=== PATIENT | male | born 1970 | race Caucasian/White ===

== ENCOUNTER 2017-12-25 11:14 | Emergency (ER) | payer OTHER ==
[2017-12-25 11:32] VITALS: TEMP 98.4; O2SAT 96
--- NOTE | 2017-12-25 12:05 | ED.PDOC ---
History of Present Illness - General Chief Complaint: Skin/Abrasion/Tear Stated Complaint: possible gastrostomy infection Time Seen by Provider: 12/25/17 11:49 Source: patient Exam Limitations: no limitations - History of Present Illness Initial Comments: 12 D AGO, HAD LAP JOSE LUIS IN [place]. G-TUBE INSERTED 12 D AGO IN CONJUNCTION FOR H/O GASTRIC BYPASS SURGERY. FOR SEVERAL DAYS, PT STATES SKIN SURFACE HAS STARTED FEELING IRRITATED. NOTICING YELLOW-BROWN DRAINAGE AROUND G-TUBE INSERTION SITE. DENIES ANY OTHER PAIN OR SX. NO INTERNAL ABDOMINAL PAIN. ALLG: PCN, FLAGYL Severity: moderate Improving Factors: nothing Worsening Factors: nothing Associated Symptoms: denies symptoms Allergies/Adverse Reactions: Allergies Penicillins Allergy (Verified 12/25/17 11:23) Home Medications: Ambulatory Orders Doxycycline (Monohydrate) [Doxycycline Monohydrate] 100 mg PO BID #20 cap Review of Systems - Review of Systems Constitutional: Denies: chills, diaphoresis, fever EENTM: States: no symptoms reported Respiratory: States: no symptoms reported Cardiology: States: no symptoms reported Gastrointestinal/Abdominal: Denies: abdominal pain, constipation, diarrhea, nausea, vomiting Genitourinary: States: no symptoms reported Musculoskeletal: States: no symptoms reported Skin: States: rash Neurological: States: no symptoms reported Endocrine: States: no symptoms reported Hematologic/Lymphatic: States: no symptoms reported All other Systems: Reviewed and Negative Past Medical History (General) - Patient Medical History Hx Stroke: No Hx Cardiac Disorders: No Hx Diabetes: No Surgical History: cholecystectomy, other Family Medical History - Family History Mother Family History: Unknown Physical Exam - Physical Exam General Appearance: Alert, Comfortable Eye Exam: bilateral normal Ears, Nose, Throat: hearing grossly normal, normal ENT inspection Neck: full range of motion, normal inspection Respiratory: lungs clear, normal breath sounds Cardiovascular/Chest: normal peripheral pulses, regular rate, rhythm Gastrointestinal/Abdominal: normal bowel sounds, non tender, soft, no organomegaly, no pulsatile mass Extremity: normal range of motion, normal inspection Neurologic: alert, normal mood/affect Skin Exam: other - G-TUBE: IN TACT. FAINT SURROUNDING ERYTHEMA APPROXIMATELY 4 CM DIAMETER. SCANT YELLOW-BROWN EXUDATE. MILD INDURATION AND G-TUBE TTP. Lymphatic: no adenopathy Progress - Results/Orders Results/Orders: PT IS ALLERGIC TO PCN AND FLAGYL, THUS CANNOT GIVE ANY USUAL TX FOR GI IFXN SUCH ZOSYN, MERREM, CIPRO/FLAGYL. HOWEVER, IT IS A MILD SKIN STRUCTURE IFXN (CELLULITIS) AROUND G-TUBE, RATHER THAN ACTUAL GI IFXN. THUS GIVING DOXYCYCLINE IV AND PO. PT STATES HE HAS APPT NEXT WEEK IN [place] WITH SURGEON TO REMOVE THE G- TUBE. RETURN PRECAUTIONS GIVEN. Departure - Departure Clinical Impression: Cellulitis at gastrostomy tube site Disposition: Discharge to Home or Self Care Condition: Good Departure Forms: ED Discharge - Pt. Copy, Patient Portal Self Enrollment Instructions: DI for Wound Infection Diet: resume usual diet Activity: increase activity as tolerated Prescriptions: Doxycycline (Monohydrate) [Doxycycline Monohydrate] 100 mg PO BID #20 cap Home Medications: Ambulatory Orders Doxycycline (Monohydrate) [Doxycycline Monohydrate] 100 mg PO BID #20 cap
[2017-12-25] MEDS ORDERED: DOXYCYCLINE HYCLATE IV 100 MG in SODIUM CHLORIDE 0.9% 250ML 250 ML IVPB ONE (12:14)
[2017-12-25] MEDS ORDERED: DOXYCYCLINE HYCLATE CAP 100 MG CAP PO ONE (12:38)
[2017-12-25 12:54] VITALS: BP 114/71
== END 2017-12-25 12:50 | disposition home or self-care (01) ==
LOC: ER 11:14
DX: K94.22 Gastrostomy infection (principal); L03.311 Cellulitis of abdominal wall; Y83.8 Other surgical procedures as the cause of abnormal reaction of the patient, or of later complication, without mention of misadventure at the time of the procedure; Z98.84 Bariatric surgery status; Z88.0 Allergy status to penicillin; Z88.1 Allergy status to other antibiotic agents; Z90.49 Acquired absence of other specified parts of digestive tract